=== PATIENT | male | born 1950 | race Caucasian/White ===

== ENCOUNTER → 2018-07-07 07:51 | Outpatient (CLI) | payer MEDICARE, SELFPAY ==
[2018-07-07 10:07] LABS: Alanine Aminotransferase 31 IU/L (21-72); Albumin 4.3 g/dL (3.5-5.0); Albumin Globulin Ratio 1.4 (1.0-2.8); Alkaline Phosphatase 96 U/L (38-126); Aspartate Aminotransferase 25 IU/L (17-59); BUN Creatinine Ratio 15.5 (6-22); Bilirubin Total 0.7 mg/dL (0.2-1.3); Blood Urea Nitrogen 17 mg/dL (9-20); Calcium 9.4 mg/dL (8.4-10.2); Carbon Dioxide 33 mmol/L (22-32); Chloride 99 mmol/L (98-107); Cholesterol 146 mg/dL (140-199); Estimated Glomerular Filt Rate > 60.0 mL/min (>60); Globulin 3.1 g/dL (1.7-4.1); Glucose 107 mg/dL (80-110); HDL Cholesterol 46 mg/dL (40-60); HEMOLYSIS < 15 (0-50); LDL Cholesterol Calculated 84 mg/dL (<100); Potassium 4.2 mmol/L (3.4-5.1); Sodium 144 mmol/L (137-145); Total Protein 7.4 g/dL (6.3-8.2); Triglycerides 79 mg/dL (35-150); Uric Acid 6.9 mg/dL (3.5-8.5)
[2018-07-07 10:26] LABS: Prostate Specific Antigen 0.915 ng/mL (0.10-4.00)
[2018-07-07 10:47] LABS: Hep C Virus Ab w/Reflex Quant NEGATIVE s/c (NEGATIVE)
== END ==
PROVIDERS: PCP Internal Medicine; Visit Provider Internal Medicine
DX: Z00.00 Encounter for general adult medical examination without abnormal findings (principal); N40.0 Benign prostatic hyperplasia without lower urinary tract symptoms; Z12.5 Encounter for screening for malignant neoplasm of prostate; M10.00 Idiopathic gout, unspecified site; I10 Essential (primary) hypertension; E78.00 Pure hypercholesterolemia, unspecified
CPT/HCPCS: 36415; 80053; 80061; 84153; 84550; 86803

== ENCOUNTER → 2018-08-11 09:17 | Outpatient (CLI) | payer MEDICARE, SELFPAY ==
[2018-08-11 10:06] LABS: Uric Acid 5.5 mg/dL (3.5-8.5)
== END ==
PROVIDERS: PCP Internal Medicine; Visit Provider Internal Medicine
DX: M10.00 Idiopathic gout, unspecified site (principal)
CPT/HCPCS: 36415; 84550

== ENCOUNTER 2018-09-26 17:37 | Emergency (ER) | payer MEDICARE, SELFPAY ==
[2018-09-26 17:44] VITALS: BP 215/101; PULSE 51; RESP 18; TEMP 36; O2SAT 98; BMI 27.7
--- NOTE | 2018-09-26 17:57 | DI.RAD.S_ITS ---
PROCEDURE: XR CHEST 1V INDICATIONS: chest pain TECHNIQUE: One view of the chest was acquired. COMPARISON: [facility], , CHEST 1 VIEW, 04/10/2013, 7:40. FINDINGS: Surgical changes and devices: None. Lungs and pleura: Lungs are clear. No pleural effusions or pneumothorax. Mediastinum: Mediastinal contours appear normal. Heart size is normal. Bones and chest wall: No suspicious bony lesions. Overlying soft tissues appear unremarkable. IMPRESSION: No acute pulmonary process. Dictated by: Lakisha Rodriguez M.D. on 09/26/2018 at 18:26 Approved by: Lakisha Rodriguez M.D. on 09/26/2018 at 18:27
[2018-09-26 18:19] LABS: Add Manual Diff / Slide Review NO; Basophils Absolute Auto 100 /uL (0-100); Eosinophils Absolute Auto 200 /uL (0-450); Hematocrit 45.4 % (41-53); Hemoglobin 15.4 g/dL (13.5-17.5); Lymphocytes Absolute Auto 1400 /uL (1100-4500); Lymphocytes Percent Auto 24.3 % (25-40); Mean Corpuscular Volume 88.2 fL (80-100); Monocytes Absolute Auto 400 /uL (0-900); Neutrophils Absolute Auto 3700 /uL (1500-7000); Neutrophils Percent Auto 64.7 % (50-75); Platelet Count 189 X10^3/uL (150-400); Red Blood Cell Count 5.15 X10^6/uL (4.5-5.9); Red Cell Distribution Width 14.4 % (11.6-14.8); White Blood Cell Count 5.7 X10^3/uL (4.5-11.0)
[2018-09-26 18:24] LABS: INR 1.1 (0.9-1.3); Prothrombin Time 12.8 SECONDS (10.1-12.7)
[2018-09-26 18:27] LABS: PTT Partial Thromboplastin Tim 36 SECONDS (26.4-36.2)
[2018-09-26 18:28] LABS: Alanine Aminotransferase 37 IU/L (21-72); Albumin 4.2 g/dL (3.5-5.0); Albumin Globulin Ratio 1.4 (1.0-2.8); Alkaline Phosphatase 86 U/L (38-126); Aspartate Aminotransferase 25 IU/L (17-59); Bilirubin Total 0.5 mg/dL (0.2-1.3); Blood Urea Nitrogen 18 mg/dL (9-20); Calcium 9.1 mg/dL (8.4-10.2); Carbon Dioxide 31 mmol/L (22-32); Chloride 103 mmol/L (98-107); Creatine Kinase 48 U/L (55-170); Estimated Glomerular Filt Rate > 60.0 mL/min (>60); Globulin 2.9 g/dL (1.7-4.1); Glucose 105 mg/dL (80-110); HEMOLYSIS 16 (0-50); Lipase 70 U/L (23-300); Sodium 143 mmol/L (137-145); Total Protein 7.1 g/dL (6.3-8.2)
[2018-09-26 18:40] LABS: Troponin I < 0.012 ng/mL (0.01-0.034)
[2018-09-26 18:48] VITALS: BP 202/96; PULSE 45; RESP 15; O2SAT 98
--- NOTE | 2018-09-26 19:07 | ED.GENADULT ---
HPI - General Adult General Chief complaint: Hypertension Stated complaint: elevated blood pressure Time Seen by Provider: 09/26/18 18:16 Source: patient and family Mode of arrival: ambulatory Limitations: no limitations History of Present Illness HPI narrative: 68-year-old male nonsmoker with history of hypertension and atrial fibrillation on anticoagulation presents with his and a chief complaint elevated blood pressure. Patient had very appropriately controlled blood pressure (in the 110s over 80s) on hydrochlorothiazide and lisinopril but had increasing gout attacks which were thought to be related to the hydrochlorothiazide. He had blood pressure medication alterations a few months ago which have improved his gout but his blood pressure has become elevated, largely in the 150s, but today it was 200/100. He complained being a bit fatigued for the past few days and had some tingling in his fingertips but denies headache, blurred vision nor chest pain, shortness of breath or abdominal pain. He presents for evaluation Onset (ago): hour(s) Location: left, right and upper extremity Radiation: non-radiation Severity: mild Severity scale (1-10): 2 Relieving factors: none Exacerbating factors: none Treatments prior to arrival: none Related Data Home Medications Medication Instructions Recorded Confirmed lisinopril-hydrochlorothiazide 1 tab PO QDAY 30 Days #0 05/08/16 04/29/18 clonidine HCl 0.2 mg PO BID 09/26/18 09/26/18 Previous Rx's Medication Instructions Recorded flecainide 100 mg PO BID #60 tab 05/09/16 colchicine 0.6 mg capsule 0.6 mg PO DAILY #10 cap 04/29/18 prednisone 20 mg tablet 40 mg PO DAILY #15 tab 04/29/18 Allergies Allergy/AdvReac Type Severity Reaction Status Date / Time No Known Drug Allergies Allergy Verified 09/26/18 17:49 Review of Systems Constitutional Denies chills, Reports fatigue, Denies fever(s), Denies lethargy and Reports weakness Eyes Denies change in vision, Denies eye discharge, Denies irritation and Denies loss of vision ENT Ears, Nose, Mouth, and Throat: Denies change in voice, Denies neck pain and Denies sore throat Cardiovascular Denies chest pain, Denies irregular heart rhythm, Denies lightheadedness, Denies palpitations, Denies dyspnea, Denies dyspnea on exertion and Denies orthopnea Respiratory Denies cough, Denies dyspnea, Denies dyspnea on exertion and Denies wheezing Gastrointestinal Gastrointestinal: Denies abdominal pain, Denies change in bowel habits, Denies diarrhea, Denies nausea and Denies vomiting Genitourinary Denies hematuria, Denies flank pain, Denies urinary incontinence and Denies urinary urgency Musculoskeletal Denies neck pain Integumentary/Breasts Denies pruritus, Denies erythema, Denies rash and Denies wounds Neurologic Denies confusion, Denies loss of vision and Reports weakness Comments: tingling in fingers of both hands, brief transient L facial tingle Psychiatric Denies anxiety, Denies confusion, Denies depression, Denies homicidal ideation and Denies suicidal ideation Endocrine Reports fatigue and Denies palpitations Hematologic/Lymphatic Denies easy bruising Allergic/Immunologic Denies wheezing PFSH Social History Smoking Status: Never smoker Social History Smoking Status: Never smoker Exam Narrative Exam Narrative: GENERAL: 68M appears stated age, no obvious distress. Resting comfortably. HEAD: Atraumatic. Normocephalic. No temporal or scalp tenderness. EYES: Pupils equal round and reactive. Extraocular motions intact. No scleral icterus. No injection or drainage. ENT: Nose without bleeding, purulent drainage or septal hematoma. Throat without erythema, tonsillar hypertrophy or exudate. Uvula midline. Airway patent. NECK: Trachea midline. No JVD or lymphadenopathy. Supple, nontender, no meningeal signs. CARDIOVASCULAR: Regular rate and rhythm without murmurs, gallops, or rubs. RESPIRATORY: Clear to auscultation. Breath sounds equal bilaterally. No wheezes, rales, or rhonchi. GASTROINTESTINAL: Abdomen soft, non-tender, nondistended. No hepato-splenomegaly, or palpable masses. No guarding. EXTREMITIES: No clubbing, cyanosis, or edema. No joint tenderness, effusion, or edema noted. BACK: Nontender without deformity or crepitance. No flank tenderness. NEURO: AOx3. SKIN: No rash or erythema. NIH Stroke Scale 1a. LOC: Patient is alert and keenly responsive (0) 1b. LOC Questions: Patient answers both LOC questions accurately (0) 1c. LOC Commands: Patient performs both tasks correctly (0) 2. Best Gaze: Normal (0) 3. Visual: No visual loss (0) 4. Facial palsy: Normal symmetrical movements (0) 5. Motor arm: No drift (0) 6. Motor leg: No drift (0) 7. Limb ataxia: Absent (0) 8. Sensory: Normal (0) 9. Best language: No aphasia; normal (0) 10. Dysarthria: Normal (0) 11. Extinction and inattention: No abnormality (0) NIHSS: 0 Initial Vital Signs Initial Vital Signs: Vital Signs Temperature 96.8 F L 09/26/18 17:44 Pulse Rate 51 L 09/26/18 17:44 Respiratory Rate 18 09/26/18 17:44 Blood Pressure 215/101 H 09/26/18 17:44 Pulse Oximetry 98 09/26/18 17:44 Course Orders Ordered: ED Orders 09/26/18 17:57 XR chest 1V Stat EKG-12 Lead Stat 09/26/18 18:10 Complete Blood Count AUTO DIFF Stat Comprehensive Metabolic Panel Stat Lipase Stat Partial Thromboplastin Time Stat Prothrombin Time INR Stat Troponin & CK Cardiac Panel Stat Reevaluation(s) Reevaluation #1: Initial BP in the 200s, patient was having tingling at that point time, no other objective findings. Reevaluation #2: Without specific intervention patient blood pressure dropped to systolic of 169 and mild paresthesias had completely resolved. No other symptoms at this time. Call to on-call provider for the group to discuss plan moving forward Consultations Consultation #1: Dr. Crocker responded to [facility] for on-call provider we discussed patient's presentation, medication changes and evaluation as well as resolution of symptoms with improvement of blood pressure. We share the opinion that patient can be safely discharged on current medication regimen, will contact primary care office tomorrow to get prompt follow-up. Vital Signs - 8 hr 09/26/18 17:44 09/26/18 18:48 09/26/18 19:17 Temperature 96.8 F L Pulse Rate 51 L 45 L 46 L Respiratory Rate 18 15 15 Blood Pressure 215/101 H Blood Pressure [Left Arm] 202/96 H 169/88 H Pulse Oximetry 98 98 95 Medical Decision Making Lab Data Result diagrams: 09/26/18 18:10 09/26/18 18:10 Lab Results 09/26/18 09/26/18 09/26/18 Range/Units 18:10 18:10 18:10 WBC 5.7 (4.5-11.0) X10^3/uL RBC 5.15 (4.5-5.9) X10^6/uL Hgb 15.4 (13.5-17.5) g/dL Hct 45.4 (41-53) % MCV 88.2 (80-100) fL MCH 30.0 (26-34) PG MCHC 34.0 (30-36) % RDW 14.4 (11.6-14.8) % Plt Count 189 (150-400) X10^3/uL Neut % (Auto) 64.7 (50-75) % Lymph % (Auto) 24.3 L (25-40) % Dickey % (Auto) 7.0 (3-14) % Eos % (Auto) 3.0 (2-4) % Baso % (Auto) 1.0 (0-2) % Neut # (Auto) 3700 (9725-0169) /uL Lymph # (Auto) 1400 (6952-6307) /uL Dickey # (Auto) 400 (0-900) /uL Eos # (Auto) 200 (0-450) /uL Baso # (Auto) 100 (0-100) /uL PT 12.8 H (10.1-12.7) SECONDS INR 1.1 (0.9-1.3) APTT 36 (26.4-36.2) SECONDS Sodium 143 (137-145) mmol/L Potassium 4.0 (3.4-5.1) mmol/L Chloride 103 (98-107) mmol/L Carbon Dioxide 31 (22-32) mmol/L BUN 18 (9-20) mg/dL Creatinine 1.20 (0.66-1.25) mg/dL Estimated GFR > 60.0 (>60) mL/min BUN/Creatinine Ratio 15.0 (6-22) Glucose 105 (80-110) mg/dL Calcium 9.1 (8.4-10.2) mg/dL Total Bilirubin 0.5 (0.2-1.3) mg/dL AST 25 (17-59) IU/L ALT 37 (21-72) IU/L Alkaline Phosphatase 86 (38-126) U/L Total Creatine Kinase 48 L (55-170) U/L CK-MB (CK-2) TNP CK-MB (CK-2) Rel Index TNP Troponin I < 0.012 (0.01-0.034) ng/mL Total Protein 7.1 (6.3-8.2) g/dL Albumin 4.2 (3.5-5.0) g/dL Globulin 2.9 (1.7-4.1) g/dL Albumin/Globulin Ratio 1.4 (1.0-2.8) Lipase 70 (23-300) U/L MDM Narrative Medical decision making narrative: 68-year-old male with history of hypertension and AFib presents with increased blood pressure and the possibility of symptoms related to his blood pressure. Only reported symptoms are generalized fatigue, which may be related to the [place] itself, and mild tingling of the fingers on both hands as well as a very brief, transient episode of tingling on the left side of the face. All symptoms resolved with improvement of blood pressure. I had lengthy bedside discussion with patient and his and we are all on the same page regarding how to proceed. I discussed care with on-call provider for the group whom sure the opinion that the patient may be safely discharged with close follow-up. The patient and his have had their questions answered to their apparent satisfaction and have a firm understanding of return precautions as evidenced by their ability to verbalize these instructions Discharge Plan Departure Patient Disposition: Home Clinical Impression: Hypertension Qualifiers: Hypertension type: unspecified Qualified Code(s): I10 - Essential (primary) hypertension Discharge Date/Time: 09/26/18 19:30 Interventions: ED Discharge Assessment Last Done: 09/26/18 19:30 Instructions: DI for High Blood Pressure Activity Restrictions/Additional Instructions: *You have been diagnosed with [ hypertensive urgency, symptoms resolved ] *What to do: *Continue to take medications as directed *I spoke with Dr. Lizzette nuñez, whom is hydroelectric station operator chief for Dr. Chester, we discussed your symptoms and labs and we agree that you are safe to go home. It is very important that you call Dr. Chester's office in the morning and tell them you were seen in the Emergency Department and we would like you seen in follow up in the next few days. *Return to ER if you should have any new, worsening or concerning symptoms, such as [headache, blurred vision, chest pain, shortness of breath or other bothersome symptoms ] Prescriptions: No Action colchicine 0.6 mg capsule 0.6 mg PO DAILY Qty: 10 RF: 0 prednisone 20 mg tablet 40 mg PO DAILY Qty: 15 RF: 0 lisinopril-hydrochlorothiazide 20 MG/25 MG tablet 1 tab PO QDAY 30 Days Qty: 0 RF: 0 flecainide 100 MG tablet 100 mg PO BID Qty: 60 RF: 10 clonidine HCl 0.1 mg Tablet 0.2 mg PO BID RF: 0 Referrals: Helio Chester MD [Primary Care Provider] -
[2018-09-26 19:17] VITALS: BP 169/88; PULSE 46; RESP 15; O2SAT 95
== END 2018-09-26 19:30 | disposition home or self-care (01) ==
PROVIDERS: Emergency Provider Emergency Medicine; Family Provider Internal Medicine; PCP Internal Medicine
DX: I10 Essential (primary) hypertension (principal)
CPT/HCPCS: 36591; 71045; 80053; 82550; 83690; 84484; 85025; 85610; 85730; 93005; 93010; 99283; 99285

== ENCOUNTER → 2019-07-22 07:48 | Outpatient (CLI) | payer MEDICARE, SELFPAY ==
[2019-07-22 08:32] LABS: Alanine Aminotransferase 30 IU/L (<50); Albumin 4.1 g/dL (3.5-5.0); Albumin Globulin Ratio 1.5 (1.0-2.8); Alkaline Phosphatase 96 U/L (38-126); Aspartate Aminotransferase 28 IU/L (17-59); Bilirubin Total 0.8 mg/dL (0.2-1.3); Blood Urea Nitrogen 18 mg/dL (9-20); Calcium 9.4 mg/dL (8.4-10.2); Carbon Dioxide 33 mmol/L (22-32); Chloride 101 mmol/L (98-107); Cholesterol 148 mg/dL (140-199); Estimated Glomerular Filt Rate > 60.0 mL/min (>60); Globulin 2.8 g/dL (1.7-4.1); Glucose 107 mg/dL (80-110); HDL Cholesterol 43 mg/dL (40-60); HEMOLYSIS < 15 (0-50); LDL Cholesterol Calculated 87 mg/dL (<100); Potassium 4.2 mmol/L (3.4-5.1); Sodium 140 mmol/L (137-145); Total Protein 6.9 g/dL (6.3-8.2); Triglycerides 92 mg/dL (35-150); Uric Acid 4.1 mg/dL (3.5-8.5)
== END ==
PROVIDERS: PCP Internal Medicine; Visit Provider Internal Medicine
DX: I48.11 Longstanding persistent atrial fibrillation (principal); I10 Essential (primary) hypertension; E78.00 Pure hypercholesterolemia, unspecified; M10.00 Idiopathic gout, unspecified site
CPT/HCPCS: 36415; 80053; 80061; 84550

== ENCOUNTER → 2019-08-04 20:09 | Outpatient (CLI) | payer MEDICARE, SELFPAY ==
--- NOTE | 2019-08-04 20:13 | DI.RAD.S_ITS ---
PROCEDURE: XR CHEST 2V INDICATIONS: cough TECHNIQUE: 2 views of the chest were acquired. COMPARISON: [facility], CR, XR CHEST 1V, 09/26/2018, 18:11. FINDINGS: Surgical changes and devices: None. Lungs and pleura: Lungs are clear. No pleural effusions or pneumothorax. Mediastinum: Mediastinal contours are normal. Heart size is normal. Bones and chest wall: No suspicious bony abnormalities. Soft tissues appear unremarkable. IMPRESSION: No evidence acute pulmonary process. Dictated by: Linden Harden M.D. on 08/04/2019 at 20:57 Approved by: Linden Harden M.D. on 08/04/2019 at 20:57
== END ==
PROVIDERS: PCP Internal Medicine; Visit Provider Physician Assistant
DX: R05 Cough (principal)
CPT/HCPCS: 71046

== ENCOUNTER → 2019-10-04 16:42 | Outpatient (CLI) | payer MEDICARE, SELFPAY ==
--- NOTE | 2019-10-04 16:48 | DI.RAD.S_ITS ---
PROCEDURE: XR CHEST 2V INDICATIONS: COUGH TECHNIQUE: 2 views of the chest were acquired. COMPARISON: [facility], CR, XR CHEST 2V, 08/04/2019, 20:10. FINDINGS: Surgical changes and devices: None. Lungs and pleura: Lungs are clear. No pleural effusions or pneumothorax. Mediastinum: Mediastinal contours are normal. Heart size is normal. Bones and chest wall: No suspicious bony abnormalities. Soft tissues appear unremarkable. IMPRESSION: No acute disease Dictated by: Alonso Blackburn M.D. on 10/04/2019 at 18:33 Approved by: Alonso Blackburn M.D. on 10/04/2019 at 18:34
== END ==
PROVIDERS: PCP Internal Medicine; Referring Provider Internal Medicine; Visit Provider Internal Medicine
DX: R05 Cough (principal); R06.00 Dyspnea, unspecified
CPT/HCPCS: 71046

== ENCOUNTER → 2020-01-09 10:06 | Outpatient (CLI) | payer MEDICARE, SELFPAY ==
[2020-01-09 11:09] LABS: Blood Urea Nitrogen 19 mg/dL (9-20); Calcium 9.3 mg/dL (8.4-10.2); Carbon Dioxide 30 mmol/L (22-32); Chloride 104 mmol/L (98-107); Estimated Glomerular Filt Rate > 60.0 mL/min (>60); Glucose 103 mg/dL (80-110); HEMOLYSIS < 15 (0-50); Potassium 4.2 mmol/L (3.4-5.1); Sodium 138 mmol/L (137-145)
== END ==
PROVIDERS: PCP Internal Medicine; Referring Provider Podiatrist; Visit Provider Podiatrist
DX: Z01.818 Encounter for other preprocedural examination (principal); Z01.812 Encounter for preprocedural laboratory examination
CPT/HCPCS: 36415; 80048; 93005

== ENCOUNTER → 2020-01-10 14:06 | Outpatient (CLI) | payer MEDICARE, SELFPAY ==
[2020-01-11 09:15] LABS: COVID19 Sendout NOT DETECTED (Not Detect)
== END ==
PROVIDERS: PCP Internal Medicine; Visit Provider Registered Nurse
DX: Z01.812 Encounter for preprocedural laboratory examination (principal)
CPT/HCPCS: 87635

== ENCOUNTER 2020-01-13 08:01 | Day surgery (SDC) | payer MEDICARE, SELFPAY ==
[2020-01-10 08:03] VITALS: BMI 28.9
[2020-01-13 08:23] VITALS: BP 155/89; PULSE 97; RESP 20; TEMP 36.6; O2SAT 97; BMI 28.3
--- NOTE | 2020-01-13 09:06 | PM.PREOP ---
Pre-operative Note COVID-19 COVID-19 status: Negative Interval Note History & Physical reviewed/Exam performed by Physician: Yes Changes to H&P: No
--- NOTE | 2020-01-13 09:06 | PM.OP.1 ---
Operative Date/Time/Diagnoses Date of procedure: 01/13/20 Time of procedure: 09:07 Pre-op diagnosis: Right foot bunion, exostosis Post-op diagnosis: same Procedure & Clinicians Procedure: Right first metatarsophalangeal bunionectomy, cheilectomy Same procedure as scheduled: Yes Indications: Painful arthritis and bunion right great toe. Conservative measures failed to alleviate his pain and he wished to have surgical intervention at this time. Surgeon: Rosalba Garcia Click Yes if Unassisted: Yes Anesthesia Type: General Operative Notes Closure Type: primary Specimen(s): none sent Estimated Blood Loss (mL): 20 Blood products transfused: none Tourniquet time (min): 34 Procedure in detail: The patient was brought to the operating room and placed on the operating table in the supine position. Tourniquet was placed about the right ankle. Patient is well-padded and appropriately supported. After induction of general anesthesia the right foot and ankle were prepped and draped in the usual aseptic manner. The tourniquet was inflated. Incision was made over the 1st metatarsal phalangeal joint. The incision was deepened through subcutaneous tissues being careful to identify and retract all vital neurovascular structures. All bleeders were cauterized and ligated as necessary. The capsule was entered dorsally at the joint and this exposed the spurring of the dorsal metatarsal head, proximal phalangeal base. Of note, the metatarsal head showed wearing of cartilage surface. The saw and rongeur were used to resect the dorsal joint spurs. The enlarged medial eminence was also resected from the 1st metatarsal head. A rasp was used to reduce the sharp edges of the bone. A K-wire was used to subchondral drill the areas lacking cartilage on the plantar and distal aspect of the 1st metatarsal head. The area was irrigated with copious amounts normal sterile saline. The toe showed increased motion without crepitus on dorsiflexion and plantarflexion. A medial capsulotomy with capsulorrhaphy was performed at the 1st metatarsophalangeal joint. This was closed with Vicryl. Deep and subcutaneous closure was closed performed with Vicryl. The tourniquet was deflated and a prompt hyperemic response was seen in the foot. Nylon suture used to close the skin. The foot was dressed with a lightly compressive sterile dressing and splint in alignment. Patient was then placed in a postoperative shoe and transferred to PACU with vital signs stable. Complications: none Post-operative Condition: stable Disposition: PACU Plan for aftercare: Following a period of postoperative monitoring, the patient be discharged home on written and oral postoperative instructions including keeping the dressing dry and intact, avoiding significant ambulation on the foot (no greater than 50% weight on operative foot until the first post op visit, icing and elevating the foot when seated home. DVT prevention techniques have been reviewed. Restart medications previously suspended for the operation now. For the 1st postoperative visit the dressing will be changed and close to the 3rd postoperative week we will likely remove the sutures.
[2020-01-13] MEDS: CEFAZOLIN 2 GM/100 ML FROZ.PIGGY IV (09:30)
--- NOTE | 2020-01-13 09:46 | SUR.OPER ---
Supine on padded OR bed, head on pillow, arms secured on padded arm boards at <90 degrees abduction, legs uncrossed, safety belt at thigh, tape over blanket over left lower leg
[2020-01-13] MEDS: BUPIVACAINE 0.5% (PF) VIAL 30 ML INJ (09:52)
[2020-01-13] MEDS: LACTATED RINGERS 1,000 ML 42 ML IV (10:00)
[2020-01-13 10:41] VITALS: BP 99/67; PULSE 50; RESP 12; TEMP 36.3; O2SAT 92
[2020-01-13 10:46] VITALS: BP 102/64; PULSE 48; RESP 10; O2SAT 97
[2020-01-13 10:56] VITALS: BP 113/74; PULSE 50; RESP 12; O2SAT 95
[2020-01-13] MEDS: HYDROCODONE/ACET 5/325 TABLET 1 TAB PO (11:17)
[2020-01-13 11:29] VITALS: BP 120/75; PULSE 50; RESP 12; TEMP 36.2; O2SAT 96
--- NOTE | 2020-01-13 11:40 | SUR.PHASEII ---
Pt ready to go, called, dressing to R foot c/d/i. Left in stable condition.
== END 2020-01-13 11:41 | disposition home or self-care (01) ==
PROVIDERS: PCP Internal Medicine; Referring Provider Podiatrist; Visit Provider Podiatrist
PROC: (CPT 28292; principal; 2020-01-13 09:15)
DX: M20.11 Hallux valgus (acquired), right foot (principal); M19.071 Primary osteoarthritis, right ankle and foot; M89.9 Disorder of bone, unspecified; I10 Essential (primary) hypertension
CPT/HCPCS: 28292; J0690; J1100; J2250; J2405; J2704; J3010

== ENCOUNTER → 2020-01-17 13:37 | Outpatient (CLI) | payer MEDICARE, SELFPAY ==
--- NOTE | 2020-01-17 | DI.MRI.S_ITS ---
PROCEDURE: MR KNEE LT WO CON INDICATIONS: Unspecified internal derangement of left knee TECHNIQUE: Noncontrast sagittal PD fast spin echo and T2 fast spin echo with fat saturation, sagittal 3-D FLASH with fat saturation; coronal T1 spin echo and PD fast spin echo with fat saturation, and axial PD fast spin echo with fat saturation through the knee. COMPARISON: None. FINDINGS: Image quality: Excellent. Menisci: Complex tear involving posterior horn of medial meniscus extending to both superior and inferior articulating surfaces. There is no focal lateral meniscal tear. Peripheral displacement of medial meniscus bowing medial collateral ligament is seen.. The meniscal root ligaments appear intact. Cruciate ligaments: Sprain/intrasubstance partial-thickness tear involving anterior cruciate ligament near its distal insertion is seen. No full-thickness ACL rupture. PCL is intact.. Medial structures: Low to moderate grade MCL sprain is noted.. The posterior oblique ligament, semimembranosus tendon insertions, oblique popliteal ligament, and meniscocapsular junction appear intact. Visualized portions of the pes anserinus tendons appear normal. No abnormal bursal fluid. Lateral structures: The lateral collateral ligament, long and short heads of the biceps femoris tendon appear intact. The popliteus tendon appears normal; the popliteofibular ligament appears intact. The posterosuperior and anteroinferior popliteomeniscal fascicles appear intact. The arcuate and fabellofibular ligaments appear intact, on either side of the lateral inferior geniculate artery. Iliotibial band appears normal. Anterior structures: Mild soft tissue edema along anterior aspect of patella and patella tendon is seen. The quadriceps and patellar tendons appear intact. Patellar alignment is normal. No femoral trochlear dysplasia or ventral trochlear prominence. No edema in the infrapatellar fat pad. Bones and cartilage: Moderate medial femoral tibial compartment osteophytes and chondromalacia is seen. Mild osteoarthritis and chondromalacia in patellofemoral compartment and lateral femoral tibial compartment is also noted. No fracture or dislocation. Joint space: There is moderate amount of joint fluid and a 3.4 x 1.5 x 5.3 cm popliteal cyst.. Normal appearing synovial plicae are incidentally noted. IMPRESSION: 1. Complex tear involving posterior horn of medial meniscus extending to both superior and inferior articulating surfaces. No focal lateral meniscal tear. 2. Sprain/low-grade intrasubstance partial-thickness tear involving distal anterior cruciate ligament near its tibial insertion. No full-thickness ACL rupture. PCL is intact. 3. Low to moderate grade MCL sprain. 4. Mild to moderate tricompartmental osteoarthritis and chondromalacia most prominent in the medial femoral tibial compartment. Small to moderate amount of joint effusion. Popliteal cyst as above. Dictated by: Kevin Saavedra M.D. on 01/17/2020 at 15:39 Approved by: Kevin Saavedra M.D. on 01/17/2020 at 15:43
== END ==
PROVIDERS: PCP Internal Medicine; Referring Provider Orthopaedic Surgery; Visit Provider Orthopaedic Surgery
DX: S83.232A Complex tear of medial meniscus, current injury, left knee, initial encounter (principal); S83.512A Sprain of anterior cruciate ligament of left knee, initial encounter; S83.412A Sprain of medial collateral ligament of left knee, initial encounter; M17.12 Unilateral primary osteoarthritis, left knee; M94.262 Chondromalacia, left knee; M71.22 Synovial cyst of popliteal space [Baker], left knee; M25.462 Effusion, left knee
CPT/HCPCS: 73721

== ENCOUNTER → 2020-06-13 08:05 | Outpatient (CLI) | payer MEDICARE, SELFPAY ==
[2020-06-13 09:16] LABS: Add Manual Diff / Slide Review NO; Basophils Absolute Auto 0 /uL (0-100); Basophils Percent Auto 0.2 % (0-2); Eosinophils Absolute Auto 100 /uL (0-450); Eosinophils Percent Auto 2.5 % (2-4); Lymphocytes Absolute Auto 1100 /uL (1100-4500); Lymphocytes Percent Auto 22.5 % (25-40); Mean Corpuscular HGB Conc 33.9 % (30-36); Mean Corpuscular Hemoglobin 30.5 PG (26-34); Mean Corpuscular Volume 89.8 fL (80-100); Monocytes Absolute Auto 300 /uL (0-900); Monocytes Percent Auto 6.5 % (3-14); Neutrophils Absolute Auto 3500 /uL (1500-7000); Neutrophils Percent Auto 68.3 % (50-75); Platelet Count 127 X10^3/uL (150-400); Red Blood Cell Count 5.23 X10^6/uL (4.5-5.9); Red Cell Distribution Width 14.5 % (11.6-14.8); White Blood Cell Count 5.1 X10^3/uL (4.5-11.0)
[2020-06-13 10:00] LABS: Alanine Aminotransferase 23 IU/L (<50); Albumin Globulin Ratio 1.5 (1.0-2.8); Alkaline Phosphatase 90 U/L (38-126); Aspartate Aminotransferase 26 IU/L (17-59); BUN Creatinine Ratio 21.7 (6-22); Bilirubin Total 0.7 mg/dL (0.2-1.3); Blood Urea Nitrogen 23 mg/dL (9-20); Calcium 9.3 mg/dL (8.4-10.2); Carbon Dioxide 35 mmol/L (22-32); Chloride 102 mmol/L (98-107); Cholesterol 134 mg/dL (140-199); Estimated Glomerular Filt Rate > 60.0 mL/min (>60); Globulin 2.7 g/dL (1.7-4.1); Glucose 105 mg/dL (80-110); HDL Cholesterol 49 mg/dL (40-60); HEMOLYSIS < 15 (0-50); LDL Cholesterol Calculated 68 mg/dL (<100); Potassium 4.4 mmol/L (3.4-5.1); Sodium 140 mmol/L (137-145); Total Protein 6.7 g/dL (6.3-8.2); Triglycerides 87 mg/dL (35-150)
[2020-06-13 10:30] LABS: Prostate Specific Antigen Scrn 1.37 ng/mL (0.1-4.0)
== END ==
PROVIDERS: PCP Internal Medicine; Referring Provider Internal Medicine; Visit Provider Internal Medicine
DX: I48.91 Unspecified atrial fibrillation (principal); I10 Essential (primary) hypertension; M48.062 Spinal stenosis, lumbar region with neurogenic claudication; I48.11 Longstanding persistent atrial fibrillation; Z12.5 Encounter for screening for malignant neoplasm of prostate
CPT/HCPCS: 36415; 80053; 80061; 85025; G0103

== ENCOUNTER → 2021-06-26 07:30 | Outpatient (CLI) | payer MEDICARE, SELFPAY ==
[2021-06-26 08:18] LABS: Add Manual Diff / Slide Review NO; Basophils Absolute Auto 0 /uL (0-100); Basophils Percent Auto 0.2 % (0-2); Eosinophils Absolute Auto 100 /uL (0-450); Eosinophils Percent Auto 2.2 % (2-4); Hematocrit 47.5 % (41-53); Hemoglobin 16.1 g/dL (13.5-17.5); Lymphocytes Absolute Auto 1100 /uL (1100-4500); Lymphocytes Percent Auto 22.3 % (25-40); Mean Corpuscular HGB Conc 33.8 % (30-36); Mean Corpuscular Hemoglobin 29.8 PG (26-34); Mean Corpuscular Volume 88.3 fL (80-100); Monocytes Absolute Auto 400 /uL (0-900); Monocytes Percent Auto 7.8 % (3-14); Neutrophils Absolute Auto 3300 /uL (1500-7000); Neutrophils Percent Auto 67.5 % (50-75); Platelet Count 151 X10^3/uL (150-400); Red Blood Cell Count 5.38 X10^6/uL (4.5-5.9); Red Cell Distribution Width 15.2 % (11.6-14.8); White Blood Cell Count 4.9 X10^3/uL (4.5-11.0)
[2021-06-26 08:41] LABS: Alanine Aminotransferase 24 IU/L (<50); Albumin 4.2 g/dL (3.5-5.0); Albumin Globulin Ratio 1.6 (1.0-2.8); Alkaline Phosphatase 83 U/L (38-126); Aspartate Aminotransferase 28 IU/L (17-59); BUN Creatinine Ratio 18.3 (6-22); Bilirubin Total 0.8 mg/dL (0.2-1.3); Blood Urea Nitrogen 21 mg/dL (9-20); Calcium 9.5 mg/dL (8.4-10.2); Carbon Dioxide 34 mmol/L (22-32); Chloride 101 mmol/L (98-107); Cholesterol 142 mg/dL (140-199); Estimated Glomerular Filt Rate > 60.0 mL/min (>60); Globulin 2.6 g/dL (1.7-4.1); Glucose 115 mg/dL (80-110); HDL Cholesterol 49 mg/dL (40-60); HEMOLYSIS < 15 (0-50); LDL Cholesterol Calculated 79 mg/dL (<100); Potassium 4.2 mmol/L (3.4-5.1); Sodium 140 mmol/L (137-145); Total Protein 6.8 g/dL (6.3-8.2); Triglycerides 72 mg/dL (35-150); Uric Acid 4.2 mg/dL (3.5-8.5)
== END ==
PROVIDERS: PCP Internal Medicine; Referring Provider Internal Medicine; Visit Provider Internal Medicine
DX: E78.00 Pure hypercholesterolemia, unspecified (principal); I10 Essential (primary) hypertension; I48.11 Longstanding persistent atrial fibrillation; M10.00 Idiopathic gout, unspecified site
CPT/HCPCS: 36415; 80053; 80061; 84550; 85025

== ENCOUNTER → 2021-10-22 07:40 | Outpatient (CLI) | payer MEDICARE, SELFPAY ==
[2021-10-22 09:20] LABS: Add Manual Diff / Slide Review NO; Basophils Absolute Auto 0 /uL (0-100); Basophils Percent Auto 0.2 % (0-2); Eosinophils Absolute Auto 100 /uL (0-450); Eosinophils Percent Auto 2.5 % (2-4); Hematocrit 46.6 % (41-53); Lymphocytes Absolute Auto 1200 /uL (1100-4500); Lymphocytes Percent Auto 22.2 % (25-40); Mean Corpuscular HGB Conc 34.2 % (30-36); Mean Corpuscular Hemoglobin 30.6 PG (26-34); Mean Corpuscular Volume 89.5 fL (80-100); Monocytes Absolute Auto 400 /uL (0-900); Monocytes Percent Auto 6.9 % (3-14); Neutrophils Absolute Auto 3600 /uL (1500-7000); Neutrophils Percent Auto 68.2 % (50-75); Platelet Count 157 X10^3/uL (150-400); Red Blood Cell Count 5.21 X10^6/uL (4.5-5.9); Red Cell Distribution Width 14.4 % (11.6-14.8); White Blood Cell Count 5.2 X10^3/uL (4.5-11.0)
== END ==
PROVIDERS: PCP Internal Medicine; Referring Provider Internal Medicine Cardiovascular Disease; Visit Provider Internal Medicine Cardiovascular Disease
DX: Z79.01 Long term (current) use of anticoagulants (principal)
CPT/HCPCS: 36415; 85025

== ENCOUNTER → 2021-11-08 16:51 | Outpatient (CLI) | payer MEDICARE, SELFPAY ==
[2021-11-08 17:38] LABS: Alanine Aminotransferase 24 IU/L (<50); Albumin 4.1 g/dL (3.5-5.0); Albumin Globulin Ratio 1.5 (1.0-2.8); Alkaline Phosphatase 70 U/L (38-126); Aspartate Aminotransferase 29 IU/L (17-59); BUN Creatinine Ratio 17.8 (6-22); Bilirubin Total 0.5 mg/dL (0.2-1.3); Blood Urea Nitrogen 21 mg/dL (9-20); Carbon Dioxide 33 mmol/L (22-32); Chloride 103 mmol/L (98-107); Estimated Glomerular Filt Rate > 60.0 mL/min (>60); Globulin 2.7 g/dL (1.7-4.1); Glucose 157 mg/dL (80-110); HEMOLYSIS < 15 (0-50); Sodium 141 mmol/L (137-145); Total Protein 6.8 g/dL (6.3-8.2)
== END ==
PROVIDERS: PCP Internal Medicine; Referring Provider Internal Medicine Cardiovascular Disease; Visit Provider Internal Medicine Cardiovascular Disease
DX: Z79.01 Long term (current) use of anticoagulants (principal)
CPT/HCPCS: 36415; 80053

== ENCOUNTER → 2022-01-14 09:29 | Outpatient (CLI) | payer MEDICARE, SELFPAY ==
--- NOTE | 2022-01-14 09:33 | DI.CT.S_ITS ---
PROCEDURE: CT ABDOMEN W CON INDICATIONS: Strong family history of kidney cancer TECHNIQUE: After the administration of intravenous contrast, axial sections were acquired from the lung bases to the pubic symphysis. Coronal and sagittal reformats were performed. For radiation dose reduction, the following was used: automated exposure control, adjustment of mA and/or kV according to patient size. COMPARISON:None. FINDINGS: Image quality: Excellent. Lung bases: Unremarkable. Heart: Normal heart size. Moderate coronary artery calcifications. ABDOMEN: Liver: Unremarkable. Gallbladder: Unremarkable. Biliary ducts: Unremarkable. Pancreas: Unremarkable. Spleen: Unremarkable. Adrenal Glands: Unremarkable. Kidneys and Ureters: No suspicious renal lesions. No renal cell carcinoma identified. Incidental note made of a 5.6 cm maximum diameter simple cyst of the left kidney.. Stomach and Bowel: Stomach, small bowel loops, and colon are unremarkable. Peritoneum: No abnormal intraperitoneal fluid. No free air. Ventral Wall: No hernia. Abdominal Nodes: No retroperitoneal or mesenteric adenopathy by size criteria. Vessels: Aorta and inferior vena cava are normal in size. PELVIS: Pelvic Organs: Unremarkable. Bladder: Unremarkable. Pelvic Nodes: No enlarged lymph nodes. Miscellaneous: No inguinal hernias are seen. Bones: Unremarkable. IMPRESSION: 1. No evidence of renal cell carcinoma. No hydronephrosis identified. No stones seen. 2. No evidence of acute abdominal process. 3. Coronary artery disease. Dictated by: Linden Harden M.D. on 01/14/2022 at 15:36 Approved by: Linden Harden M.D. on 01/14/2022 at 15:39
[2022-01-14 10:06] LABS: BUN Creatinine Ratio 19.3 (6-22); Blood Urea Nitrogen 22 mg/dL (9-20); Calcium 9.3 mg/dL (8.4-10.2); Carbon Dioxide 31 mmol/L (22-32); Chloride 103 mmol/L (98-107); Estimated Glomerular Filt Rate > 60 mL/min (>60); Glucose 118 mg/dL (80-110); HEMOLYSIS < 15 (0-50); Potassium 4.2 mmol/L (3.4-5.1); Sodium 139 mmol/L (137-145)
== END ==
PROVIDERS: PCP Internal Medicine; Referring Provider Internal Medicine; Visit Provider Internal Medicine
DX: Z12.89 Encounter for screening for malignant neoplasm of other sites (principal); N28.1 Cyst of kidney, acquired; I25.10 Atherosclerotic heart disease of native coronary artery without angina pectoris; Z80.51 Family history of malignant neoplasm of kidney
CPT/HCPCS: 36415; 74160; 80048; Q9967

== ENCOUNTER → 2023-10-12 07:26 | Outpatient (CLI) | payer MEDICARE, SELFPAY ==
[2023-10-12 08:19] LABS: Add Manual Diff / Slide Review NO; Basophils Absolute Auto 0 /uL (0-100); Basophils Percent Auto 0.2 % (0-2); Eosinophils Absolute Auto 100 /uL (0-450); Eosinophils Percent Auto 2.6 % (2-4); Hematocrit 46.5 % (41-53); Hemoglobin 16.2 g/dL (13.5-17.5); Lymphocytes Absolute Auto 1200 /uL (1100-4500); Lymphocytes Percent Auto 23.4 % (25-40); Mean Corpuscular HGB Conc 34.8 % (30-36); Mean Corpuscular Hemoglobin 30.6 PG (26-34); Mean Corpuscular Volume 88.1 fL (80-100); Monocytes Absolute Auto 400 /uL (0-900); Monocytes Percent Auto 6.7 % (3-14); Neutrophils Absolute Auto 3500 /uL (1500-7000); Neutrophils Percent Auto 67.1 % (50-75); Platelet Count 151 X10^3/uL (150-400); Red Blood Cell Count 5.28 X10^6/uL (4.5-5.9); White Blood Cell Count 5.3 X10^3/uL (4.5-11.0)
[2023-10-12 08:48] LABS: BUN Creatinine Ratio 12.2 (6-22); Blood Urea Nitrogen 15 mg/dL (9-20); Calcium 9.4 mg/dL (8.4-10.2); Carbon Dioxide 34 mmol/L (22-32); Chloride 104 mmol/L (98-107); Estimated Glomerular Filt Rate > 60 mL/min (>60); Glucose 111 mg/dL (80-110); HEMOLYSIS < 15 (0-50); Potassium 4.1 mmol/L (3.4-5.1); Sodium 141 mmol/L (137-145)
== END ==
PROVIDERS: PCP Internal Medicine; Referring Provider Surgery; Visit Provider Surgery
DX: K40.90 Unilateral inguinal hernia, without obstruction or gangrene, not specified as recurrent (principal); I48.91 Unspecified atrial fibrillation
CPT/HCPCS: 36415; 80048; 85025; 93005; 93010

== ENCOUNTER → 2023-12-18 07:50 | Outpatient (CLI) | payer MEDICARE, SELFPAY ==
[2023-12-18 08:31] LABS: Add Manual Diff / Slide Review NO; Basophils Absolute Auto 0 /uL (0-100); Basophils Percent Auto 0.2 % (0-2); Eosinophils Absolute Auto 100 /uL (0-450); Eosinophils Percent Auto 2.2 % (2-4); Hematocrit 44.5 % (41-53); Hemoglobin 15.4 g/dL (13.5-17.5); Lymphocytes Absolute Auto 1200 /uL (1100-4500); Lymphocytes Percent Auto 21.6 % (25-40); Mean Corpuscular HGB Conc 34.5 % (30-36); Mean Corpuscular Hemoglobin 30.5 PG (26-34); Mean Corpuscular Volume 88.2 fL (80-100); Monocytes Absolute Auto 300 /uL (0-900); Monocytes Percent Auto 5.6 % (3-14); Neutrophils Absolute Auto 3900 /uL (1500-7000); Neutrophils Percent Auto 70.4 % (50-75); Platelet Count 180 X10^3/uL (150-400); Red Blood Cell Count 5.04 X10^6/uL (4.5-5.9); Red Cell Distribution Width 14.2 % (11.6-14.8); White Blood Cell Count 5.5 X10^3/uL (4.5-11.0)
[2023-12-18 15:01] LABS: Alanine Aminotransferase 23 IU/L (<50); Albumin 3.9 g/dL (3.5-5.0); Albumin Globulin Ratio 1.6 (1.0-2.8); Alkaline Phosphatase 93 U/L (38-126); Aspartate Aminotransferase 28 IU/L (17-59); BUN Creatinine Ratio 18.1 (6-22); Bilirubin Total 0.7 mg/dL (0.2-1.3); Blood Urea Nitrogen 19 mg/dL (9-20); Calcium 8.9 mg/dL (8.4-10.2); Carbon Dioxide 31 mmol/L (22-32); Chloride 103 mmol/L (98-107); Estimated Glomerular Filt Rate > 60 mL/min (>60); Globulin 2.5 g/dL (1.7-4.1); Glucose 106 mg/dL (80-110); HEMOLYSIS < 15 (0-50); Potassium 3.9 mmol/L (3.4-5.1); Sodium 138 mmol/L (137-145); Total Protein 6.4 g/dL (6.3-8.2)
== END ==
PROVIDERS: PCP Internal Medicine; Referring Provider Internal Medicine Cardiovascular Disease; Visit Provider Internal Medicine Cardiovascular Disease
DX: Z51.81 Encounter for therapeutic drug level monitoring (principal); Z79.01 Long term (current) use of anticoagulants; Z79.899 Other long term (current) drug therapy
CPT/HCPCS: 36415; 80053; 85025

== ENCOUNTER → 2025-01-13 07:26 | Outpatient (CLI) | payer MEDICARE, SELFPAY ==
[2025-01-13 08:08] LABS: Add Manual Diff / Slide Review NO; Basophils Absolute Auto 0 /uL (0-100); Basophils Percent Auto 0.2 % (0-2); Eosinophils Absolute Auto 200 /uL (0-450); Hematocrit 46.2 % (41-53); Hemoglobin 16.2 g/dL (13.5-17.5); Lymphocytes Absolute Auto 1200 /uL (1100-4500); Lymphocytes Percent Auto 24.6 % (25-40); Mean Corpuscular HGB Conc 35.1 % (30-36); Mean Corpuscular Hemoglobin 31.1 PG (26-34); Mean Corpuscular Volume 88.5 fL (80-100); Monocytes Absolute Auto 300 /uL (0-900); Monocytes Percent Auto 5.6 % (3-14); Neutrophils Absolute Auto 3400 /uL (1500-7000); Neutrophils Percent Auto 66.6 % (50-75); Platelet Count 149 X10^3/uL (150-400); Red Blood Cell Count 5.23 X10^6/uL (4.5-5.9); Red Cell Distribution Width 14.6 % (11.6-14.8); White Blood Cell Count 5.1 X10^3/uL (4.5-11.0)
[2025-01-13 08:25] LABS: Alanine Aminotransferase 22 IU/L (<50); Albumin 4.4 g/dL (3.5-5.0); Albumin Globulin Ratio 1.8 (1.0-2.8); Alkaline Phosphatase 86 U/L (38-126); Aspartate Aminotransferase 28 IU/L (17-59); BUN Creatinine Ratio 19.5 (6-22); Bilirubin Total 0.9 mg/dL (0.2-1.3); Blood Urea Nitrogen 22 mg/dL (9-20); Calcium 9.6 mg/dL (8.4-10.2); Carbon Dioxide 31 mmol/L (22-32); Chloride 101 mmol/L (98-107); Estimated Glomerular Filt Rate > 60 mL/min (>60); Globulin 2.4 g/dL (1.7-4.1); Glucose 114 mg/dL (70-99); HEMOLYSIS < 15 (0-50); Potassium 4.5 mmol/L (3.4-5.1); Sodium 138 mmol/L (137-145); Total Protein 6.8 g/dL (6.3-8.2)
== END ==
PROVIDERS: PCP Internal Medicine; Referring Provider Physician Assistant; Visit Provider Physician Assistant
DX: Z51.81 Encounter for therapeutic drug level monitoring (principal); I48.0 Paroxysmal atrial fibrillation; Z79.01 Long term (current) use of anticoagulants; Z79.899 Other long term (current) drug therapy
CPT/HCPCS: 36415; 80053; 85025

== ENCOUNTER → 2025-06-13 10:17 | Outpatient (CLI) | payer MEDICARE, SELFPAY ==
--- NOTE | 2025-06-13 10:18 | DI.RAD.S_ITS ---
PROCEDURE: XR CHEST 2V
== END ==
PROVIDERS: PCP Internal Medicine; Referring Provider Physician Assistant; Visit Provider Physician Assistant
DX: R05.9 Cough, unspecified (principal)
CPT/HCPCS: 71046